=== PATIENT | male | born 1970 | race Hispanic/Latino ===

== ENCOUNTER → 2022-01-22 | Outpatient (CLI) | payer OTHER ==
--- NOTE | 2022-01-23 05:13 | PRP ---
DATE OF PROCEDURE: 01/22/2022 DICTATOR NAME: CAIN LINDQUIST DO VENOUS MAPPING ULTRASOUND INDICATION: Chronic venous insufficiency. RIGHT LOWER EXTREMITY: The right greater saphenous vein measures 7 mm in its maximum diameter. Significant reflux is noted in the right greater saphenous vein with maximum reflux of 1.4 seconds. The right small saphenous vein measures 1 mm in its maximum diameter. There is no evidence of significant reflux in the right small saphenous vein. There is no evidence of deep venous thrombosis in the right lower extremity. LEFT LOWER EXTREMITY: The left greater saphenous vein measures 10 mm in its maximum diameter. Significant reflux is noted in the left greater saphenous vein with maximum reflux of 2.3 seconds. The left small saphenous vein measures 3 mm in its maximum diameter. Significant reflux is noted in the left small saphenous vein with maximum reflux of 0.5 seconds. There is no evidence of deep venous thrombosis in the left lower extremity. IMPRESSION: * The right greater saphenous vein is normal sized but displays pathological reflux. * The left greater saphenous vein is severely dilated and displays pathological reflux. * The left small saphenous vein is normal sized but displays pathological reflux. * The right small saphenous vein is normal sized and does not show any significant reflux. * There is no evidence of deep venous thrombosis in the bilateral lower extremities. RECOMMENDATIONS: Conservative measures including the use of compression stockings, leg elevation and exercise are recommended if clinically indicated. David HAWLEY D.O. DR: NACHO FLORESD: [id number] RECEIPT: [id number]
== END | disposition home or self-care (01) ==
LOC: RAD 13:33
PROVIDERS: ATTEND Nurse Practitioner Family
DX: I86.8 Varicose veins of other specified sites (principal); I87.2 Venous insufficiency (chronic) (peripheral)
CPT/HCPCS: 93970

== ENCOUNTER → 2022-02-24 | Outpatient (CLI) | payer OTHER ==
--- NOTE | 2022-02-25 05:24 | PRP ---
DATE OF PROCEDURE: 02/24/2022 DICTATOR NAME: CAIN LINDQUIST DO POST-VENOUS ABLATION DOPPLER ULTRASOUND INDICATION: Status post Varithena ablation of the right greater saphenous vein. FINDINGS: There is no evidence of deep venous thrombosis in the right lower extremity. The right greater saphenous vein is noncompressible. Hyperechoic material is visualized in the right greater saphenous vein. There is no evidence of venous flow in the right greater saphenous vein. IMPRESSION: * Successful Varithena ablation of the right greater saphenous vein. * There is no evidence of deep venous thrombosis in the right lower extremity. David HAWLEY D.O. DR: SARA/HEMANT TID: [id number] RECEIPT: [id number]
== END | disposition home or self-care (01) ==
LOC: RAD 10:34
PROVIDERS: ATTEND Internal Medicine Interventional Cardiology
DX: I87.2 Venous insufficiency (chronic) (peripheral) (principal)
CPT/HCPCS: 93971

== ENCOUNTER → 2022-03-03 | Outpatient (CLI) | payer OTHER ==
--- NOTE | 2022-03-04 04:40 | PRP ---
DATE OF PROCEDURE: 03/03/2022 DICTATOR NAME: CAIN LINDQUIST DO POST VENOUS ABLATION DOPPLER ULTRASOUND INDICATION: Status post Varithena ablation of the left greater saphenous vein. FINDINGS: There is no evidence of venous flow in the left greater saphenous vein. The left greater saphenous vein is noncompressible. Hyperechoic material is visualized in the left greater saphenous vein. Deep venous thrombosis is visualized in the left peroneal vein only. IMPRESSION: * Successful Varithena ablation of the left greater saphenous vein. * A small DVT is noted in the left peroneal vein. David HAWLEY D.O. DR: KAY FLORESD: [id number] RECEIPT: [id number]
== END | disposition home or self-care (01) ==
LOC: RAD 10:36
PROVIDERS: ATTEND Nurse Practitioner Family
DX: I87.2 Venous insufficiency (chronic) (peripheral) (principal)
CPT/HCPCS: 93971

== ENCOUNTER → 2023-08-12 | Outpatient (CLI) | payer OTHER | END | disposition home or self-care (01) | LOC: RAD 09:31 | PROVIDERS: ATTEND Nurse Practitioner Family | DX: M48.07 Spinal stenosis, lumbosacral region (principal); M54.9 Dorsalgia, unspecified; Z90.49 Acquired absence of other specified parts of digestive tract | CPT/HCPCS: 72100 ==